=== PATIENT | female | born 1930 | race Asian ===

== ENCOUNTER 2016-10-08 07:51 | Outpatient (CLI) | payer MEDICARE, MEDICAID | END 2016-10-08 07:52 | disposition home or self-care (01) | DX: N18.3 Chronic kidney disease, stage 3 (moderate) (principal); E55.9 Vitamin D deficiency, unspecified; E78.5 Hyperlipidemia, unspecified; I12.9 Hypertensive chronic kidney disease with stage 1 through stage 4 chronic kidney disease, or unspecified chronic kidney disease ==

== ENCOUNTER 2016-12-20 12:12 | Emergency (ER) | payer MEDICARE, MEDICAID ==
--- NOTE | 2016-12-20 12:49 | ED Physician Documentation ---
PD HPI ABD PAIN - Stated complaint Stated Complaint: ABD PAIN - Chief complaint Chief Complaint: Abd Pain - History obtained from History obtained from: Patient, Family - History of Present Illness Timing - onset: How many days ago (3) Timing - duration: Days (3) Timing - details: Gradual onset Pain level max: 8 Pain level now: 8 Quality: Aching, Pain Location: RUQ Radiation: Other (non-radiating) Improved by: Other (states motrin and tylenol helped) Worsened by: Moving, Palpation. No: Eating, Breathing, Position Associated symptoms: Nausea. No: Fever, Vomiting, Hematemesis, Diarrhea, Constipation, Melena, Hematochezia, Dysuria, Hematuria, Chest pain, Near syncope / syncope, Loss of appetite, Weight loss, Vaginal bleeding, Vaginal dc Similar symptoms before: Has not had sx before Recently seen: Not recently seen - Additional information Additional information: states cholecystectomy 1994. Review of Systems Ten Systems: 10 systems reviewed and negative Constitutional: denies: Fever, Chills Nose: denies: Rhinorrhea / runny nose, Congestion Cardiac: denies: Chest pain / pressure Respiratory: denies: Cough, Wheezing GI: reports: Nausea. 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 : None HEENT: None Psych: None Musculoskeletal: None Derm: None - Past Surgical History Past Surgical History: Yes General: Cholecystectomy - Present Medications Home Medications: Ambulatory Orders Medication Instructions Recorded Confirmed Amlodipine Besylate 0 mg PO BID 02/24/15 12/20/16 Aspirin [Aspir 81] 81 mg ORAL DAILY 02/24/15 12/20/16 Atenolol 0 mg PO DAILY 02/24/15 12/20/16 Furosemide [Lasix] 20 mg PO DAILY PRN 02/24/15 02/24/15 Hydrocodone/Acetaminophen [[place] 1 each PO Q6H PRN #20 tablet 02/24/15 5-325 Tablet] Ibuprofen 400 mg PO TID #20 tablet 02/24/15 Meclizine [Antivert] 12.5 mg ORAL DAILY PRN 02/24/15 02/24/15 Omeprazole 20 mg PO DAILY 02/24/15 02/24/15 Cephalexin [Keflex] 500 mg PO Q6H #28 capsule 12/20/16 Omeprazole 40 mg PO DAILY #30 capsule. 12/20/16 - Allergies Allergies/Adverse Reactions: Allergies Allergy/AdvReac Type Severity Reaction Status Date / Time No Known Drug Allergies Allergy Verified 12/20/16 12:22 - Social History Does the pt smoke?: No Smoking Status: Never smoker Does the pt drink ETOH?: No Does the pt have substance abuse?: No - Immunizations Immunizations are current?: No Immunizations: TDAP >10years/unknown - POLST Patient has POLST: No PD ED PE NORMAL - Vitals Vital signs reviewed: Yes - General General: Alert and oriented X 3, No acute distress - HEENT HEENT: Moist mucous membranes - Neck Neck: Supple, no meningeal sign - Cardiac Cardiac: RRR, Strong equal pulses - Respiratory Respiratory: No respiratory distress, Clear bilaterally - Abdomen Abdomen: Other (TTP RUQ and RLQ. no peritoneal signs.) - Back Back: No CVA TTP, No spinal TTP - Derm Derm: Warm and dry, No rash - Extremities Extremities: No edema, No calf tenderness / cord - Neuro Neuro: Alert and oriented X 3 - Psych Psych: Normal mood, Normal affect Results - Vitals Vitals: Vital Signs - 24 hr 12/20/16 12/20/16 12/20/16 12:16 13:11 14:13 Temperature 98.0 C H 36.4 C L Heart Rate 70 70 66 Respiratory 16 20 18 Rate Blood Pressure 159/66 H 147/66 H 147/56 H O2 Saturation 96 95 95 12/20/16 15:35 Temperature 36.6 C Heart Rate 64 Respiratory 20 Rate Blood Pressure 145/58 H O2 Saturation 97 Oxygen O2 Source Room air - Labs Labs: Laboratory Tests 12/20/16 12/20/16 12/20/16 12:50 13:08 13:08 WBC 9.7 RBC 3.59 L Hgb 12.8 Hct 36.9 L MCV 102.8 H MCH 35.7 H MCHC 34.8 RDW 12.5 Plt Count 201 MPV 7.2 L Neut # 5.6 Lymph # 2.8 [place] # 0.8 Eos # 0.4 Baso # 0.1 Absolute Nucleated RBC 0.00 Nucleated RBCs 0.0 Sodium 137 Potassium 4.2 Chloride 105 Carbon Dioxide 23 Anion Gap 9.0 BUN 18 Creatinine 1.0 Estimated GFR (MDRD) 52 L Glucose 122 H Calcium 9.0 Total Bilirubin 0.8 AST 20 ALT 20 Alkaline Phosphatase 44 Total Protein 7.7 Albumin 4.0 Globulin 3.7 Albumin/Globulin Ratio 1.1 Lipase 57 H Urine Color YELLOW Urine Clarity HAZY Urine pH 6.0 Ur Specific [place] 1.025 Urine Protein 30 H Urine Glucose (UA) NEGATIVE Urine Ketones NEGATIVE Urine Occult Blood NEGATIVE Urine Nitrite NEGATIVE Urine Bilirubin NEGATIVE Urine Urobilinogen 0.2 (NORMAL) Ur Leukocyte Esterase SMALL H Urine RBC 0-5 Urine WBC 11-25 H Ur Squamous Epith Cells FEW Squamous Urine Bacteria Moderate H Ur Microscopic Review INDICATED Urine Culture Comments INDICATED - Rads (name of study) abd/pelvis CT Radiology: Prelim report reviewed, EMP read contemporaneously, See rad report ( Acute inflammation of the proximal to mid duodenum with paraduodenal edema and/ or inflammation. Consistent with duodenitis or duodenal ulcer disease. 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 Uncertain if this is related to the duodenal inflammation. . There are hypodense lesions within the pancreas, liver , and right kidney. Most likely cysts, although not definitively characterized. Left ovary is enlarged for age. The change is mild compared to 11/21/2012. Measures 3.2 x 2.1 x 3.1 cm currently and previously 3.2 x 1.9 x 3.0 cm favoring a non-aggressive process. ) PD MEDICAL DECISION MAKING - ED course Complexity details: reviewed results, re-evaluated patient, considered differential, d/w patient, d/w family ED course: Patient presents to the emergency department with right upper abdominal pain, appears to have acute inflammation the proximal to mid duodenum. Upon further history she had stopped her omeprazole several months ago for unclear etiology. Will restart her on this. Also found to have UTI, given Rocephin will place on antibiotics for this. She is well-appearing, nontoxic. Afebrile. Tolerating p.o. without difficulty. Abdomen is soft, mild tenderness nondistended on serial exam. No peritoneal signs. Patient and family counseled regarding signs and symptoms for which I believe and urgent re-evaluation would be necessary. Patient with good understanding of and agreement to plan and is comfortable going home at this time She declines pain medications here or for home. This document was made in part using voice recognition software. While efforts are made to proofread this document, sound alike and grammatical errors may occur. CT findings were reviewed with the patient and family. Including the left ovarian enlargement. They will follow-up with her doctor for this Departure - Departure Disposition: Home, Self Care Clinical Impression: Duodenal ulcer disease UTI (urinary tract infection) Qualifiers: Urinary tract infection type: acute cystitis Hematuria presence: without hematuria Qualified Code(s): N30.00 - Acute cystitis without hematuria Condition: Good Instructions: ED UTI Cystitis Female, ED PUD Follow-Up: Dagoberto Renteria MD [Primary Care Provider] - Within 3 Days Prescriptions: Cephalexin [Keflex] 500 mg PO Q6H #28 capsule Omeprazole 40 mg PO DAILY #30 capsule. Comments: Return if you worsen. This should improve over the next few days. You may need a repeat endoscopy and this can be scheduled with your doctor. You do have active ulcer disease. Your blood pressure was elevated today on check in to the emergency department. This does not mean that you have hypertension, it is a common phenomenon to check into the emergency department and have elevated blood pressure. I recommend that you see your primary care physician within the week to have it rechecked when you're feeling better. Discharge Date/Time: 12/20/16 15:20
[2016-12-20 12:59] LABS: BILIRUBIN,URINE NEGATIVE (NEGATIVE)
[2016-12-20 13:06] LABS: UA w/ MICROSCOPIC CHARGE YES
[2016-12-20 13:09] LABS: UR CULTURE IF IND INDICATED
[2016-12-20] MEDS: SODIUM CHLORIDE 0.9% 1,000 ML IV ONE (13:11)
[2016-12-20 13:21] LABS: BASOPHILS # (AUTO) 0.1 10^3/uL (0.0-0.1); BASOPHILS % (AUTO) 0.6 %; EOSINOPHILS # (AUTO) 0.4 10^3/uL (0.0-0.7); EOSINOPHILS % (AUTO) 4.2 %; HCT - HEMATOCRIT 36.9 % (37.0-47.0); HGB - HEMOGLOBIN 12.8 g/dL (12.0-16.0); LYMPHOCYTES # (AUTO) 2.8 10^3/uL (1.5-3.5); LYMPHOCYTES % (AUTO) 28.5 %; MEAN CORPUSCULAR HEMOGLOBIN 35.7 pg (27.0-31.0); MEAN CORPUSCULAR HGB CONC 34.8 g/dL (32.0-36.0); MEAN CORPUSCULAR VOLUME 102.8 fL (81.0-99.0); MEAN PLATELET VOLUME 7.2 fL (7.9-10.8); MONOCYTES # (AUTO) 0.8 10^3/uL (0.0-1.0); MONOCYTES % (AUTO) 8.3 %; NEUTROPHILS # (AUTO) 5.6 10^3/uL (1.5-6.6); NEUTROPHILS % (AUTO) 58.4 %; RED BLOOD COUNT 3.59 10^6/uL (4.20-5.40); RED CELL DISTRIBUTION WIDTH 12.5 % (12.0-15.0); UNCORRECTED WHITE BLOOD COUNT 9.7 x10^3/uL; WHITE BLOOD COUNT 9.7 x10^3/uL (4.8-10.8)
[2016-12-20 13:34] LABS: ALBUMIN/GLOBULIN RATIO 1.1 (1.0-2.2); BILIRUBIN,TOTAL 0.8 mg/dL (0.2-1.0); POTASSIUM 4.2 mmol/L (3.5-5.0); TOTAL PROTEIN 7.7 g/dL (6.7-8.2)
[2016-12-20] MEDS: IOPAMIDOL-300 100 ML VIAL IVP ONE (14:02)
--- NOTE | 2016-12-20 14:45 | CT Preliminary Report ---
Exam: CT Abdomen/Pelvis W/ IMPRESSION: 1. Acute inflammation of the proximal to mid duodenum with paraduodenal edema and/or inflammation. Co nsistent with duodenitis or duodenal ulcer disease. 2. 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 Uncertain if this is related to the duodenal inflam mation. 3. There are hypodense lesions within the pancreas, liver, and right kidney. Most likely cysts, altho ugh not definitively characterized. 4. Left ovary is enlarged for age. The change is mild compared to 11/21/2012. Measures 3.2 x 2.1 x 3. 1 cm currently and previously 3.2 x 1.9 x 3.0 cm favoring a non-aggressive process. [facility] SITE ID: [id number]
--- NOTE | 2016-12-20 14:48 | CT Report ---
EXAM: CT ABDOMEN AND PELVIS EXAM DATE: 12/20/2016 01:48 PM. CLINICAL HISTORY: RUQ pain, R side pain. COMPARISONS: 11/21/2012. TECHNIQUE: Routine helical CT imaging was performed through the abdomen and pelvis. IV contrast: 100 cc Isovue-300 IV. Enteric contrast: No. Reconstructions: Coronal and sagittal. In accordance with CT protocol optimization, one or more of the following dose reduction techniques w ere utilized for this exam: automated exposure control, adjustment of mA and/or KV based on patient s ize, or use of iterative reconstructive technique. FINDINGS: Lung Bases: There are chronic bibasilar reticular densities. Liver: There is a low-density lesion in the inferior right lobe of the liver measuring 2.1 cm which i s unchanged and most likely a cyst. Liver otherwise unremarkable. Gallbladder/Bile Ducts: Gallbladder is surgically absent. Spleen: Normal. Pancreas: There is a hypodense lesion in the pancreatic tail measuring 13 x 12 mm with an adjacent ca lcification. There is a second 5 mm hypodensity in the pancreatic tail. Pancreas otherwise unremarkab le. Adrenal Glands: Normal. Kidneys: There is a right renal cyst. No solid mass or hydronephrosis. Peritoneal Cavity/Bowel: There is thickening of the wall of the duodenum. There is mucosal hyperenhan cement. There is a saccular outpouching of the duodenum located medial and superior to the duodenal s weep. This saccular outpouching measures 3.6 x 2.0 x 2.6 cm. There is a moderate amount of focal fat stranding within this location with features of acute paraduodenal inflammation there are calcified s mall mesenteric lymph nodes. The small bowel is otherwise unremarkable. Colon is normal in caliber an d thickness. Pelvic Organs: The left ovary appears enlarged for age and measures 3.2 x 2.1 x 3.1 cm. Uterus and ri ght ovary appear within normal limits. Vasculature: There is moderate atherosclerotic vascular calcification. Bones: No significant abnormality. Other: None. IMPRESSION: 1. Acute inflammation of the proximal to mid duodenum with paraduodenal edema and/or inflammation. Co nsistent with duodenitis or duodenal ulcer disease. 2. 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 Uncertain if this is related to the duodenal inflam mation. 3. There are hypodense lesions within the pancreas, liver, and right kidney. Most likely cysts, altho ugh not definitively characterized. 4. Left ovary is enlarged for age. The change is mild compared to 11/21/2012. Measures 3.2 x 2.1 x 3. 1 cm currently and previously 3.2 x 1.9 x 3.0 cm favoring a non-aggressive process. [facility] Referring Provider Line: [phone] SITE ID: [id number]
[2016-12-20] MEDS ORDERED: cefTRIAXone 1 GM VIAL ONE (15:02)
[2016-12-20] MEDS ORDERED: PANTOPRAZOLE 40 MG VIAL ONE (15:02)
[2016-12-20] MEDS: PANTOPRAZOLE 40 MG VIAL IVP STA (15:10)
[2016-12-20] MEDS: cefTRIAXone 1 GM in SODIUM CHLORIDE 0.9% MINIBAG 100 ML IV STA (15:10)
[2016-12-20 15:37] VITALS: BP 145/58
== END 2016-12-20 15:20 | disposition home or self-care (01) ==
LOC: ED 12:12
DX: K26.9 Duodenal ulcer, unspecified as acute or chronic, without hemorrhage or perforation (principal); N30.00 Acute cystitis without hematuria; I10 Essential (primary) hypertension; E78.00 Pure hypercholesterolemia, unspecified; K21.9 Gastro-esophageal reflux disease without esophagitis; Z79.82 Long term (current) use of aspirin
CPT/HCPCS: 36415; 74177; 80053; 81001; 81003; 83690; 85025; 87077; 87086; 96361; 96374; 96375; 99284; 99285

== ENCOUNTER 2017-06-08 07:38 | Outpatient (CLI) | payer MEDICARE, MEDICAID ==
[2017-06-08 13:09] LABS: BASOPHILS # (AUTO) 0.1 10^3/uL (0.0-0.1); BASOPHILS % (AUTO) 1.2 %; EOSINOPHILS # (AUTO) 0.5 10^3/uL (0.0-0.7); EOSINOPHILS % (AUTO) 7.1 %; HCT - HEMATOCRIT 37.8 % (37.0-47.0); LYMPHOCYTES # (AUTO) 2.6 10^3/uL (1.5-3.5); LYMPHOCYTES % (AUTO) 38.9 %; MEAN CORPUSCULAR HEMOGLOBIN 35.3 pg (27.0-31.0); MEAN CORPUSCULAR HGB CONC 34.3 g/dL (32.0-36.0); MEAN CORPUSCULAR VOLUME 102.8 fL (81.0-99.0); MEAN PLATELET VOLUME 7.5 fL (7.9-10.8); MONOCYTES # (AUTO) 0.7 10^3/uL (0.0-1.0); MONOCYTES % (AUTO) 9.8 %; NEUTROPHILS # (AUTO) 2.9 10^3/uL (1.5-6.6); NUCLEATED RED BLOOD CELLS AUTO 0.1 /100WBC; RED BLOOD COUNT 3.68 10^6/uL (4.20-5.40); RED CELL DISTRIBUTION WIDTH 12.7 % (12.0-15.0); UNCORRECTED WHITE BLOOD COUNT 6.7 x10^3/uL; WHITE BLOOD COUNT 6.7 x10^3/uL (4.8-10.8)
[2017-06-08 13:18] LABS: ALBUMIN/GLOBULIN RATIO 1.2 (1.0-2.2); BUN - BLOOD UREA NITROGEN 16 mg/dL (6-20); CALCIUM 9.1 mg/dL (8.5-10.3); CARBON DIOXIDE - CO2 23 mmol/L (21-32); CHLORIDE 102 mmol/L (101-111); CHOL/HDL RATIO 2.8 (<4.4); CHOLESTEROL 148 mg/dL; GFR - MDRD 52 (>89); GLUCOSE 100 mg/dL (70-100); HDL CHOLESTEROL 52 mg/dL; LDL/HDL RATIO 1.2 (<4.4); POTASSIUM 4.2 mmol/L (3.5-5.0); SODIUM 134 mmol/L (135-145); TOTAL PROTEIN 7.6 g/dL (6.7-8.2); TRIGLYCERIDES 182 mg/dL; VLDL CHOLESTEROL 36 mg/dL
== END 2017-06-08 07:39 | disposition home or self-care (01) ==
LOC: LAB.N 07:38
PROVIDERS: ATTEND Family Medicine
DX: K27.9 Peptic ulcer, site unspecified, unspecified as acute or chronic, without hemorrhage or perforation (principal); E78.5 Hyperlipidemia, unspecified; I10 Essential (primary) hypertension
CPT/HCPCS: 36415; 80053; 80061; 85025

== ENCOUNTER 2017-11-05 08:00 | Outpatient (CLI) | payer MEDICARE, MEDICAID ==
[2017-11-05 13:24] LABS: ALBUMIN 4.3 g/dL (3.2-5.5); ALBUMIN/GLOBULIN RATIO 1.3 (1.0-2.2); BILIRUBIN,TOTAL 0.9 mg/dL (0.2-1.0); CALCIUM 8.9 mg/dL (8.5-10.3); TOTAL PROTEIN 7.5 g/dL (6.7-8.2)
[2017-11-05 13:39] LABS: BASOPHILS % (AUTO) 0.8 %; EOSINOPHILS # (AUTO) 0.4 10^3/uL (0.0-0.7); EOSINOPHILS % (AUTO) 6.5 %; HGB - HEMOGLOBIN 12.5 g/dL (12.0-16.0); LYMPHOCYTES # (AUTO) 1.9 10^3/uL (1.5-3.5); LYMPHOCYTES % (AUTO) 32.8 %; MEAN CORPUSCULAR HEMOGLOBIN 35.5 pg (27.0-31.0); MEAN CORPUSCULAR HGB CONC 34.6 g/dL (32.0-36.0); MEAN CORPUSCULAR VOLUME 102.8 fL (81.0-99.0); MEAN PLATELET VOLUME 7.7 fL (7.9-10.8); MONOCYTES # (AUTO) 0.6 10^3/uL (0.0-1.0); MONOCYTES % (AUTO) 9.9 %; NEUTROPHILS # (AUTO) 2.9 10^3/uL (1.5-6.6); PLT - PLATELET COUNT 199 10^3/uL (130-450); RED BLOOD COUNT 3.51 10^6/uL (4.20-5.40); RED CELL DISTRIBUTION WIDTH 12.5 % (12.0-15.0); WHITE BLOOD COUNT 5.9 x10^3/uL (4.8-10.8)
== END 2017-11-05 08:01 | disposition home or self-care (01) ==
LOC: LAB.N 08:00
PROVIDERS: ATTEND Family Medicine
DX: I10 Essential (primary) hypertension (principal)
CPT/HCPCS: 36415; 80053; 85025

== ENCOUNTER 2018-05-19 08:00 | Outpatient (CLI) | payer MEDICARE, MEDICAID ==
[2018-05-19 12:35] LABS: ALBUMIN 4.1 g/dL (3.2-5.5); ALBUMIN/GLOBULIN RATIO 1.2 (1.0-2.2); ALKALINE PHOSPHATASE 37 IU/L (42-121); ALT ALANINE AMINOTRANSFERASE 13 IU/L (10-60); AST ASPARTATE AMINOTRANSFERASE 19 IU/L (10-42); BILIRUBIN,TOTAL 0.8 mg/dL (0.2-1.0); BUN - BLOOD UREA NITROGEN 22 mg/dL (6-20); CALCIUM 9.1 mg/dL (8.5-10.3); CARBON DIOXIDE - CO2 23 mmol/L (21-32); CHLORIDE 104 mmol/L (101-111); CHOL/HDL RATIO 5.1 (<4.4); CHOLESTEROL 234 mg/dL; CREATININE 0.9 mg/dL (0.4-1.0); GFR - MDRD 59 (>89); GLUCOSE 101 mg/dL (70-100); HDL CHOLESTEROL 46 mg/dL; LDL CHOLESTEROL,CALCULATED 145 mg/dL; LDL/HDL RATIO 3.2 (<4.4); SODIUM 136 mmol/L (135-145); TOTAL PROTEIN 7.5 g/dL (6.7-8.2); VLDL CHOLESTEROL 43 mg/dL
== END 2018-05-19 08:01 | disposition home or self-care (01) ==
LOC: LAB.R 08:00
PROVIDERS: ATTEND Family Medicine
DX: I10 Essential (primary) hypertension (principal); E78.5 Hyperlipidemia, unspecified
CPT/HCPCS: 36415; 80053; 80061; 83721

== ENCOUNTER 2018-09-29 07:52 | Emergency (ER) | payer MEDICARE, MEDICAID ==
--- NOTE | 2018-09-29 08:04 | ED Physician Documentation ---
PD HPI ABD PAIN - Stated complaint Stated Complaint: ABD PX - Chief complaint Chief Complaint: Abd Pain - History obtained from History obtained from: Patient, Family - History of Present Illness Timing - onset: How many days ago (2-3) Timing - duration: Days (3) Timing - details: Gradual onset, Still present, Waxing and waning Quality: Aching, Pain Location: RUQ, Epigastric Radiation: Upper back Improved by: No: BM Worsened by: Eating, Palpation. No: Breathing Associated symptoms: Nausea, Constipation (mild), Loss of appetite. No: Fever, Vomiting, Diarrhea, Melena, Dysuria, Chest pain Similar symptoms before: Diagnosis (had duodenitis/diverticulum in 2017 with similar symptoms. That improved and has not had ongoing pains.) Recently seen: Not recently seen Review of Systems Constitutional: denies: Fever, Chills Nose: denies: Rhinorrhea / runny nose, Congestion Throat: denies: Sore throat Cardiac: denies: Chest pain / pressure Respiratory: denies: Cough GI: reports: Abdominal Pain, Nausea, Constipation (mild). denies: Abdominal Swelling, Vomiting, Diarrhea : denies: Dysuria, Frequency Skin: denies: Rash Musculoskeletal: denies: Extremity swelling Neurologic: reports: Generalized weakness. 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 : None HEENT: None, Other (she is blind) Psych: None Musculoskeletal: None Derm: None - Past Surgical History Past Surgical History: Yes General: Cholecystectomy - Present Medications Home Medications: Ambulatory Orders Medication Instructions Recorded Confirmed Amlodipine Besylate 0 mg PO BID 02/24/15 12/20/16 Aspirin [Aspir 81] 81 mg ORAL DAILY 02/24/15 12/20/16 Furosemide [Lasix] 20 mg PO DAILY PRN 02/24/15 02/24/15 Ibuprofen 400 mg PO TID #20 tablet 02/24/15 Meclizine [Antivert] 12.5 mg ORAL DAILY PRN 02/24/15 02/24/15 Famotidine 20 mg PO DAILY #30 tablet 09/29/18 Hydrocodone/Acetaminophen [[place] 1 each PO Q6H PRN #15 tablet 09/29/18 5-325 Tablet] Metoprolol Tartrate 0 mg PO 09/29/18 Ondansetron Odt [Zofran] 4 mg TL Q6H PRN #10 tablet 09/29/18 Propylene Glycol [Systane Balance] 10 ml OP 09/29/18 Sucralfate [Carafate] 1 gm PO ACHS #28 tablet 09/29/18 - Allergies Allergies/Adverse Reactions: Allergies Allergy/AdvReac Type Severity Reaction Status Date / Time No Known Drug Allergies Allergy Verified 09/29/18 08:02 - Social History Does the pt smoke?: No Smoking Status: Never smoker Does the pt drink ETOH?: No Does the pt have substance abuse?: No - Immunizations Immunizations are current?: No Immunizations: TDAP >10years/unknown - POLST Patient has POLST: No PD ED PE NORMAL - Vitals Vital signs reviewed: Yes - General General: Alert and oriented X 3, No acute distress, Well developed/nourished - HEENT HEENT: Moist mucous membranes, Pharynx benign - Neck Neck: Supple, no meningeal sign, No adenopathy - Cardiac Cardiac: RRR, No murmur - Respiratory Respiratory: Clear bilaterally - Abdomen Abdomen: Normal bowel sounds, Soft, Non distended, No organomegaly, Other (tender epigastric area with some local guarding. No percussion nor rebound tenderness.) - Female Female : Deferred - Rectal Rectal: Deferred - Back Back: No CVA TTP - Derm Derm: Normal color, Warm and dry - Extremities Extremities: No deformity, No tenderness to palpate, Normal ROM s pain, No edema, No calf tenderness / cord - Neuro Neuro: Alert and oriented X 3, No motor deficit, Normal speech Results - Vitals Vitals: Vital Signs - 24 hr 09/29/18 09/29/18 09/29/18 07:59 08:02 08:42 Temperature 36.8 C Heart Rate 93 91 87 Respiratory 16 16 16 Rate Blood Pressure 194/80 H 190/73 H 173/72 H O2 Saturation 98 98 97 09/29/18 09/29/18 09:46 10:15 Temperature 36.0 C L Heart Rate 97 86 Respiratory 17 20 Rate Blood Pressure 191/88 H 161/63 H O2 Saturation 97 96 Oxygen O2 Source Room air - Labs Labs: Laboratory Tests 09/29/18 09/29/18 09/29/18 08:10 08:10 09:10 WBC 8.5 RBC 3.59 L Hgb 12.9 Hct 36.3 L MCV 101.1 H MCH 35.9 H MCHC 35.6 RDW 12.5 Plt Count 247 MPV 6.7 L Neut # (Auto) 5.2 Lymph # (Auto) 2.0 [place] # (Auto) 0.7 Eos # (Auto) 0.6 Baso # (Auto) 0.1 Absolute Nucleated RBC 0.00 Nucleated RBC % 0.0 Sodium 132 L Potassium 4.2 Chloride 98 L Carbon Dioxide 22 Anion Gap 12.0 BUN 21 H Creatinine 1.1 H Estimated GFR (MDRD) 47 L Glucose 109 H Calcium 9.3 Total Bilirubin 0.7 AST 20 ALT 18 Alkaline Phosphatase 41 L Total Protein 8.0 Albumin 3.9 Globulin 4.1 Albumin/Globulin Ratio 1.0 Lipase 34 Urine Color YELLOW Urine Clarity CLEAR Urine pH 6.0 Ur Specific [place] 1.020 Urine Protein 100 H Urine Glucose (UA) NEGATIVE Urine Ketones NEGATIVE Urine Occult Blood NEGATIVE Urine Nitrite NEGATIVE Urine Bilirubin NEGATIVE Urine Urobilinogen 0.2 (NORMAL) Ur Leukocyte Esterase NEGATIVE Urine RBC None Seen Urine WBC 0-3 Ur Squamous Epith Cells FEW Squamous Urine Bacteria Rare Ur Microscopic Review INDICATED Urine Culture Comments NOT INDICATED - Rads (name of study) abd CT Radiology: Prelim report reviewed (local inflammation at antrum of stomach c/w gastritis. Consider EGD to ensure no tumor/etc.), EMP read contemporaneously, See rad report PD MEDICAL DECISION MAKING - ED course Complexity details: reviewed results (CT showing inflammation of gastric antrum c/w gastritis/ulcer. ), re-evaluated patient (not much improved with Mylanta. Given other meds. Did have some pain radiate to chest, but is tender epigastric. Improved with carafater and pain meds. ), considered differential, d/w patient Departure - Departure Disposition: 01 Home, Self Care Clinical Impression: Acute epigastric pain Gastritis, acute Qualifiers: Gastritis type: unspecified gastritis Gastritis bleeding: without bleeding Qualified Code(s): K29.00 - Acute gastritis without bleeding Condition: Stable Record reviewed to determine appropriate education?: Yes Instructions: ED Gastritis Follow-Up: Dagoberto Renteria MD [Primary Care Provider] - Prescriptions: Famotidine 20 mg PO DAILY #30 tablet Hydrocodone/Acetaminophen [[place] 5-325 Tablet] 1 each PO Q6H PRN #15 tablet PRN Reason: Pain Ondansetron Odt [Zofran] 4 mg TL Q6H PRN #10 tablet PRN Reason: Nausea / Vomiting Sucralfate [Carafate] 1 gm PO ACHS #28 tablet Comments: I suggest you hold off taking your aspirin and no other anti-inflammatories such as ibuprofen or naproxen for now. These can add irritation to the stomach. Take famotidine acid reducing medicine daily for the next few weeks. Carafate 4 times a day to coat the stomach lining for the next week. Add Tylenol or hydrocodone as needed for pain over the next few days or so. Drink lots of fluids and regular diet as able. Follow-up with your primary care in the next 4-5 days if not really improved. Your CT scan showed some inflammation of the stomach (gastritis). Discharge Date/Time: 09/29/18 10:16
[2018-09-29 08:21] LABS: BASOPHILS # (AUTO) 0.1 10^3/uL (0.0-0.1); BASOPHILS % (AUTO) 0.9 %; EOSINOPHILS # (AUTO) 0.6 10^3/uL (0.0-0.7); EOSINOPHILS % (AUTO) 7.1 %; HGB - HEMOGLOBIN 12.9 g/dL (12.0-16.0); LYMPHOCYTES % (AUTO) 23.6 %; MEAN CORPUSCULAR HEMOGLOBIN 35.9 pg (27.0-31.0); MEAN CORPUSCULAR HGB CONC 35.6 g/dL (32.0-36.0); MEAN CORPUSCULAR VOLUME 101.1 fL (81.0-99.0); MEAN PLATELET VOLUME 6.7 fL (7.9-10.8); MONOCYTES # (AUTO) 0.7 10^3/uL (0.0-1.0); MONOCYTES % (AUTO) 7.9 %; NEUTROPHILS # (AUTO) 5.2 10^3/uL (1.5-6.6); NEUTROPHILS % (AUTO) 60.5 %; PLT - PLATELET COUNT 247 10^3/uL (130-450); RED BLOOD COUNT 3.59 10^6/uL (4.20-5.40); RED CELL DISTRIBUTION WIDTH 12.5 % (12.0-15.0); WHITE BLOOD COUNT 8.5 x10^3/uL (4.8-10.8)
[2018-09-29 08:29] LABS: ALBUMIN 3.9 g/dL (3.2-5.5); BILIRUBIN,TOTAL 0.7 mg/dL (0.2-1.0); CALCIUM 9.3 mg/dL (8.5-10.3); CREATININE 1.1 mg/dL (0.4-1.0)
[2018-09-29] MEDS ORDERED: FAMOTIDINE 20 MG/2 ML VIAL IVP STA (08:29)
[2018-09-29] MEDS ORDERED: MAG HYDROX/AL HYDROX/SIMETH 30 ML UDC PO STA (08:29)
[2018-09-29] MEDS ORDERED: SODIUM CHLORIDE 0.9% 1,000 ML IV ONE (08:29)
[2018-09-29] MEDS ORDERED: ONDANSETRON 4 MG/2 ML VIAL IVP STA (08:29)
[2018-09-29 09:18] LABS: BILIRUBIN,URINE NEGATIVE (NEGATIVE); GLUCOSE, URINE (UA) NEGATIVE (NEGATIVE); KETONES,URINE (UA) NEGATIVE (NEGATIVE); LEUKOCYTE ESTERASE, URINE NEGATIVE (NEGATIVE); NITRITE,URINE NEGATIVE (NEGATIVE); OCCULT BLOOD,URINE NEGATIVE (NEGATIVE); PROTEIN,URINE 100 mg/dL (NEGATIVE); UROBILINOGEN,URINE 0.2 (NORMAL) E.U./dL (NORMAL)
--- NOTE | 2018-09-29 09:18 | CT Report ---
Reason: upper abd pain for 2-3 days Procedure Date: 09/29/2018 Accession Number: [id number] / [id number] Procedure: CT - Abdomen/Pelvis W/O CPT Code: FULL RESULT: EXAM: CT ABDOMEN AND PELVIS (CT KUB) EXAM DATE: 09/29/2018 09:00 AM. CLINICAL HISTORY: Upper abdominal pain. COMPARISONS: ABDOMEN/PELVIS W/ 12/20/2016 1:47 PM. TECHNIQUE: Routine axial helical CT imaging was performed through the abdomen and pelvis without IV contrast. Reconstructions: Coronal and sagittal. In accordance with CT protocol optimization, one or more of the following dose reduction techniques were utilized for this exam: automated exposure control, adjustment of mA and/or KV based on patient size, or use of iterative reconstructive technique. FINDINGS: Lung Bases: Motion artifact obscures detailed visualization. Some minor atelectasis or scarring is suspected. Extensive calcified coronary disease and borderline cardiomegaly is seen. Right Kidney/Ureter: Minor cortical renal atrophy. Small exophytic cyst in the right mid kidney is stable. No stones, hydronephrosis, or hydroureter. No perinephric fat stranding. Left Kidney/Ureter: Minor cortical renal atrophy. No stones, hydronephrosis, or hydroureter. No perinephric fat stranding. Other Solid Organs: Noncontrast imaging of the solid organs demonstrates no acute findings. Simple cyst in the right hepatic lobe is unchanged. Calcification and cystic change in the distal pancreatic tail measuring up to 1.6 cm and appears grossly unchanged but somewhat limited in evaluation due to noncontrast technique (sees image 22/3). Gallbladder/Bile Ducts: Cholecystectomy changes are seen. There is no biliary dilation. Peritoneal Cavity: The stomach antrum demonstrates some mild wall thickening and subtle stranding, nonspecific (image 17/5 and image 35/3). There is minimal predominantly sigmoid diverticulosis without evidence of diverticulitis. There is no obstruction or ileus. No free fluid or free air. As before, there is some calcification and shotty lymph nodes in the mesentery without appreciable change compared with prior study. The appendix is not visualized, however, no inflammatory changes are seen in the right lower quadrant region. Pelvic Organs: No bladder stones or wall thickening. Noncontrast images of the visualized pelvic organs are unremarkable. Vasculature: Calcified atherosclerotic disease of the aorta is seen without aneurysm or other significant vascular abnormality. Other: None. IMPRESSION: 1. Mild wall thickening and subtle stranding involving the stomach antrum. Findings could represent gastritis changes/ulcerative disease. Malignancy is not excluded. Consider correlation with direct visualization or upper gastrointestinal study. 2. 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 3. Stable small cyst in the right kidney and liver. 4. Grossly stable cyst and calcification in the distal pancreatic tail region. Visualization is technically limited by noncontrast technique. 5. Minimal colonic diverticulosis without diverticulitis. [facility]
[2018-09-29 09:19] LABS: CLARITY,URINE CLEAR (CLEAR)
[2018-09-29] MEDS ORDERED: MORPHINE 10 MG/ML VIAL IVP STA (09:31)
[2018-09-29] MEDS ORDERED: SUCRALFATE 1 GM/10 ML UDC PO STA (09:31)
[2018-09-29 09:35] LABS: BACTERIA,URINE Rare /HPF (None Seen); RBC,URINE None Seen /HPF (0-5); SQUAMOUS EPITHELIAL CELL,UR FEW Squamous (<= Few)
[2018-09-29 10:16] VITALS: BP 161/63
== END 2018-09-29 10:16 | disposition home or self-care (01) ==
LOC: ED 07:52
DX: K29.00 Acute gastritis without bleeding (principal); R07.9 Chest pain, unspecified; I10 Essential (primary) hypertension; Z79.82 Long term (current) use of aspirin
CPT/HCPCS: 36415; 74176; 80053; 81001; 83690; 85025; 93005; 96361; 96374; 96375; 99284; A9270; 81003; 87086

== ENCOUNTER 2018-11-24 12:19 | Outpatient (CLI) | payer MEDICARE, MEDICAID ==
[2018-11-24 12:44] LABS: CALCIUM 9.2 mg/dL (8.5-10.3); CREATININE 1.1 mg/dL (0.4-1.0)
== END 2018-11-24 12:20 | disposition home or self-care (01) ==
LOC: LAB 12:19
PROVIDERS: ATTEND Internal Medicine Gastroenterology
DX: I10 Essential (primary) hypertension (principal)
CPT/HCPCS: 36415; 80048; 93005

== ENCOUNTER 2018-12-02 10:44 | Day surgery (SDC) | payer MEDICARE, MEDICAID ==
[2018-12-02] MEDS ORDERED: LACTATED RINGERS 1,000 ML IV ONE (11:07)
[2018-12-02] MEDS ORDERED: LIDO GARGLE 30 ML BOTTLE ONE (13:03)
[2018-12-02] MEDS ORDERED: MIDAZOLAM 2 MG/2 ML VIAL IVP ONE (13:33)
[2018-12-02] MEDS ORDERED: fentaNYL 100 MCG/2 ML VIAL IVP ONE (13:33)
[2018-12-02] MEDS ORDERED: LIDO GARGLE 30 ML BOTTLE PO ONE (13:47)
[2018-12-02 14:21] VITALS: BP 173/75
== END 2018-12-02 10:45 | disposition home or self-care (01) ==
LOC: SDS 10:44
PROVIDERS: ATTEND Internal Medicine Gastroenterology
PROC: 0DB78ZX Excision of Stomach, Pylorus, Via Natural or Artificial Opening Endoscopic, Diagnostic (ICD-10-PCS; principal; 2018-12-02 13:30)
DX: R10.13 Epigastric pain (principal); K31.89 Other diseases of stomach and duodenum; K31.9 Disease of stomach and duodenum, unspecified; K44.9 Diaphragmatic hernia without obstruction or gangrene; I12.9 Hypertensive chronic kidney disease with stage 1 through stage 4 chronic kidney disease, or unspecified chronic kidney disease; N18.3 Chronic kidney disease, stage 3 (moderate); I25.10 Atherosclerotic heart disease of native coronary artery without angina pectoris; M19.90 Unspecified osteoarthritis, unspecified site
CPT/HCPCS: 43239; A9270; J7120